=== PATIENT | female | born 1935 | race Caucasian/White ===

== ENCOUNTER 2017-03-15 09:43 | Outpatient (CLI) | payer MEDICARE, OTHER ==
--- NOTE | 2017-03-15 17:36 | ULT ---
THYROID ULTRASOUND: 03/15/17 Comparison is made with the prior study of 08/28/16. The thyroid is enlarge. The right lobe measures 6.2 x 3.1 x 2.0 cm and the left lobe measures 5.6 x 2.9 x 2.4 cm. As before, there are two hypoechoic nodules, one in each lobe. The one in the right lobe is in its m id portion and measures 0.5 x 0.6 x 0.6 cm. The one in the left lobe is in the upper part of that lo be and measures 0.8 x 0.9 x 0.9 cm. No surrounding adenopathy was seen. IMPRESSION: 1. Marked thyromegaly. 2. Small subcentimeter nodules in each lobe with virtually no change in size since the July study. POS: HOME
== END 2017-03-15 09:44 | disposition home or self-care (01) ==
LOC: BURULT 09:43
PROVIDERS: ATTEND Otolaryngology Plastic Surgery within the Head & Neck
DX: E04.2 Nontoxic multinodular goiter (principal); E01.0 Iodine-deficiency related diffuse (endemic) goiter
CPT/HCPCS: 76536

== ENCOUNTER 2021-05-16 10:28 | Outpatient (CLI) | payer MEDICARE, BC ==
[2021-05-16 11:04] LABS: #Basophils 0.1 thou/uL (0.0-0.2); #Eosinphils 0.1 thou/uL (0.0-0.7); #Lymphocytes 1.4 thou/uL (1.20-3.40); #Monocytes 0.4 thou/uL (0.11-0.59); %Eosinophils 1.4 % (0.0-10.0); %Lymphocytes 23.3 % (21.0-51.0); %Monocytes 6.2 % (0.0-10.0); %Neutrophils 68.2 % (42.0-75.0); Hemoglobin 11.8 g/dL (12.0-16.0); Mean Corpuscular HGB CONC 32.4 g/dL (32.0-36.0); Mean Corpuscular Hemoglobin 29.2 pg (27.0-31.0); Mean Corpuscular Volume 90.3 fL (78.0-98.0); Mean Platelet Volume 8.6 fL (7.4-10.4); Platelet Count 201 thou/uL (130-400); Red Blood Cell (RBC) Count 4.02 mill/uL (4.20-5.40); White Blood Cell (WBC) Count 5.9 thou/uL (4.8-10.8)
[2021-05-16 11:50] LABS: Anion Gap 14 mmol/L (10-20); BUN (Urea Nitrogen) 17 mg/dL (9.8-20.1); Calc. Creatinine Clearance 0 mL/min (70-130); Calcium 9.1 mg/dL (7.8-10.44); Carbon Dioxide 25 mmol/L (23-31); Chloride 106 mmol/L (98-107); Glucose 107 mg/dL (83-110); Potassium 4.8 mmol/L (3.5-5.1); Sodium 140 mmol/L (136-145)
[2021-05-16 21:36] LABS: SARS-CoV-2 PCR by NAA Not Detected (NotDetected)
== END 2021-05-16 10:29 | disposition home or self-care (01) ==
LOC: BUREKG 10:28
PROVIDERS: ATTEND Surgery
DX: Z01.818 Encounter for other preprocedural examination (principal); C50.911 Malignant neoplasm of unspecified site of right female breast; Z20.822 Contact with and (suspected) exposure to COVID-19
CPT/HCPCS: 36415; 71046; 80048; 85025; 93005; 93010; U0003; U0005

== ENCOUNTER 2023-01-02 11:56 | Outpatient (CLI) | payer MEDICARE, BC | END 2023-01-02 11:57 | disposition home or self-care (01) | LOC: BURRAD 11:56 | PROVIDERS: ATTEND Family Medicine | DX: M25.532 Pain in left wrist (principal); S52.515A Nondisplaced fracture of left radial styloid process, initial encounter for closed fracture ==